=== PATIENT | female | born 1955 | race Caucasian/White ===

== ENCOUNTER → 2018-11-28 | Outpatient (CLI) | payer MEDICARE ==
--- NOTE | 2018-11-28 14:40 | Diagnostic Imaging Report ---
TECHNIQUE: Computed tomography imaging of the RIGHT SHOULDER was performed WITHOUT injected contrast. COMPARISON: None available. HISTORY: Pain FINDINGS: Comminuted fracture of the proximal humerus with fractures involving the involving the neck and greater tuberosity. No significant displacement (greater than 1 cm). Mild dorsal angulation across the neck measuring approximately 30 degrees. The humeral head is inferiorly subluxed from the glenoid. Soft tissue swelling adjacent to the fracture site. The acromioclavicular are joint is intact. IMPRESSION: Comminuted fracture of the proximal humerus across the neck and greater tuberosity as above. Signed by: Dr. Kumar Wilks M.D. on 11/28/2018 2:37 PM
--- NOTE | 2018-11-28 16:49 | Diagnostic Imaging Report ---
EXAMINATION: CERVICAL SPINE 4 OR 5 VIEWS COMPARISON: None FINDINGS: Cervical spine alignment is unremarkable. C1-C2 alignment is maintained. No evidence of acute fracture or malalignment. Prevertebral soft tissues are unremarkable. Very mild degenerative disc and facet degenerative changes. No significant bony neural foraminal stenosis. Partially seen median sternotomy wires. IMPRESSION: No acute radiographic abnormality. Very mild degenerative disc and facet degenerative changes. No significant bony neural foraminal stenosis. Signed by: Dr. Selina Martini MD on 11/28/2018 4:45 PM
--- NOTE | 2018-11-28 16:53 | Diagnostic Imaging Report ---
EXAM: lumbar spine, 2 view, AP and supine lateral COMPARISON: None FINDINGS: Exam somewhat limited by body habitus and difficulty with patient positioning. BONES: There is diffuse osteopenia. Mild levoconvex curvature of the lumbar spine. No evidence of acute displaced fracture. There is age indeterminate mild anterior wedge compression deformity of the L1 vertebral body. DISCS: Mild degenerative disc changes, most pronounced at L5-S1. JOINTS: Mild facet degenerative changes, most pronounced at L4-L5 and L5-S1. No significant bony neural foraminal stenosis. SOFT TISSUES: Atherosclerotic vascular calcifications. There are retroperitoneal clips. IMPRESSION: Diffuse osteopenia with mild age indeterminate loss of vertebral body height at L1. Mild degenerative disc and facet degenerative changes of the lower lumbar spine. Signed by: Dr. Selina Martini MD on 11/28/2018 4:50 PM
== END ==
LOC: CT 13:42
PROVIDERS: ATTEND Specialist
DX: S42.231A 3-part fracture of surgical neck of right humerus, initial encounter for closed fracture (principal); M54.2 Cervicalgia; M54.5 Low back pain
CPT/HCPCS: 72050; 72110